=== PATIENT | female | born 1935 | race Caucasian/White ===

== ENCOUNTER 2017-01-26 16:21 | Observation (INO) | payer MEDICARE, BC ==
--- NOTE | 2017-01-26 16:37 | EDM.PDOC ---
ED HPI GENERAL MEDICAL PROBLEM - General Stated Complaint: FALL Time Seen by Provider: 01/26/17 16:21 Source of Information: Reports: Patient, Family History Limitations: Reports: No Limitations - History of Present Illness INITIAL COMMENTS - FREE TEXT/NARRATIVE: 81 years old w f filling up the gas tank of her car at gas station, twisted her r leg and fell onto her r knee. Pt has severe pain at her r posterior knee with any kind of movement. No pain at rest. 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 No other acute medical issues. Pt denies any past medical history. Onset: Today Onset Date: 01/26/17 Onset Time: 15:00 Duration: Hour(s): Location: Reports: Lower Extremity, Right Quality: Reports: Ache, Dull, Pressure, Stabbing, Throbbing Severity: Moderate Improves with: Reports: Rest Worsens with: Reports: Movement Associated Symptoms: Reports: No Other Symptoms Right Knee Pain Score (Numeric/FACES): 3 - Related Data Allergies Allergy/AdvReac Type Severity Reaction Status Date / Time No Known Allergies Allergy Verified 01/26/17 16:24 Home Meds: Home Meds Latanoprost [Xalatan 0.005% Ophth Soln] 2.5 ml EYEBOTH BEDTIME 01/26/17 [History ] Simvastatin [Zocor] 10 mg PO BEDTIME 01/26/17 [History] Review of Systems - Review of Systems Review Of Systems: See Below Constitutional: Reports: No Symptoms Eyes: Reports: No Symptoms Ears: Reports: No Symptoms Nose: Reports: No Symptoms Mouth/Throat: Reports: No Symptoms Respiratory: Reports: No Symptoms Cardiovascular: Reports: No Symptoms GI/Abdominal: Reports: No Symptoms Genitourinary: Reports: No Symptoms Musculoskeletal: Reports: Leg Pain (right leg) Skin: Reports: No Symptoms Neurological: Reports: No Symptoms Psychiatric: Reports: No Symptoms ED EXAM, GENERAL - Physical Exam Exam: See Below Exam Limited By: No Limitations General Appearance: Alert, WD/WN, Mild Distress Eye Exam: Bilateral Eye: Normal Inspection Ears: Normal External Exam Ear Exam: Bilateral Ear: Auricle Normal Nose: Normal Inspection, Normal Mucosa Throat/Mouth: Normal Inspection, Normal Lips Head: Atraumatic, Normocephalic Neck: Normal Inspection, Supple Respiratory/Chest: No Respiratory Distress, Lungs Clear, Normal Breath Sounds Cardiovascular: Normal Peripheral Pulses, Regular Rate, Rhythm, No Edema Peripheral Pulses: 2+: Femoral (L), Femoral (R) GI/Abdominal: Normal Bowel Sounds, Soft, Non-Tender (Female) Exam: Deferred Rectal (Female) Exam: Deferred Back Exam: Normal Inspection, Full Range of Motion Extremities: Limited Range of Motion, Increased Warmth Course - Vital Signs Text/Narrative:: 81 years old w f filling up the gas tank of her car at gas station, twisted her r leg and fell onto her r knee. Pt has severe pain at her r posterior knee with any kind of movement. No pain at rest. 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 No other acute medical issues. Pt denies any past medical history. PE: R knee pain after a fall Imaging: Nondisplaced vertical fracture through the anterior cortex of the intercondylar fossa of the distal fremur. 6.01PM Consultation: Dr. Chavez: Admit for pain control, no surgery scheduled. Impression:Nondisplaced vertical fracture through the anterior cortex of the intercondylar fossa of the distal fremur Tx: Ptrefused pain meds. R knee immobilizer, ICE Plan: Admit to [facility]. Last Recorded V/S: Last Vital Signs Temp 36.6 C 01/27/17 04:00 Pulse 66 01/27/17 04:00 Resp 16 01/27/17 04:00 BP 129/68 01/27/17 04:00 Pulse Ox 97 01/27/17 04:00 - Orders/Labs/Meds Orders: Active Orders 24 hr Category Date Time Status Patient Status [ADT] Routine ADT 01/26/17 18:11 Active Bedrest Bedside Commode [RC] ASDIRECTED Care 01/26/17 18:10 Active Cooling Warming Measures [RC] .PRN Care 01/26/17 16:25 Active Oxygen Therapy [RC] PRN Care 01/26/17 18:11 Active Vital Signs [RC] 04,08,12,16,20,00 Care 01/26/17 18:11 Active Knee 3V Rt [CR] Stat Exams 01/26/17 16:24 Taken Lower Extremity wo Cont Rt [CT] Stat Exams 01/26/17 16:57 Taken Ondansetron [Zofran] Med 01/26/17 18:10 Active 4 mg IV Q4H PRN Sodium Chloride 0.9% [Saline Flush] Med 01/26/17 18:10 Active 10 ml FLUSH ASDIRECTED PRN Ice Bag [Ice Therapy] [OM.PC] Routine Oth 01/26/17 16:25 Ordered Peripheral IV Insertion Adult [OM.PC] Routine Oth 01/26/17 18:10 Ordered Resuscitation Status Routine Resus Stat 01/26/17 18:10 Ordered Medication Orders Hydrocodone Bitart/Acetaminophen ([place] 325-5 Mg) 1 tab PO Q4H PRN PRN Reason: severe pain Last Admin: 01/27/17 01:22 Dose: 1 tab Admin: 01/26/17 19:32 Dose: 1 tab Morphine Sulfate (Morphine) 2 mg IVPUSH Q2H PRN PRN Reason: severe pain Ondansetron HCl (Zofran) 4 mg IV Q4H PRN PRN Reason: Nausea/Vomiting Sodium Chloride (Saline Flush) 10 ml FLUSH ASDIRECTED PRN PRN Reason: Keep Vein Open Meds: Medications Generic Name Dose Route Start Last Admin Trade Name Freq PRN Reason Stop Dose Admin Hydrocodone Bitart/Acetaminophen 1 tab 01/26/17 18:39 01/27/17 01:22 [place] 325-5 Mg PO 1 tab Q4H PRN Administration severe pain Morphine Sulfate 2 mg 01/26/17 18:23 Morphine IVPUSH Q2H PRN severe pain Ondansetron HCl 4 mg 01/26/17 18:10 Zofran IV Q4H PRN Nausea/Vomiting Sodium Chloride 10 ml 01/26/17 18:10 Saline Flush FLUSH ASDIRECTED PRN Keep Vein Open Departure - Departure Time of Disposition: 21:00 Disposition: Admitted As Inpatient 66 Condition: Fair Clinical Impression: Intercondylar fracture of femur - Discharge Information - My Orders Last 24 Hours: My Active Orders 01/26/17 16:24 Knee 3V Rt [CR] Stat 01/26/17 16:25 Cooling Warming Measures [RC] .PRN Ice Bag [Ice Therapy] [OM.PC] Routine 01/26/17 16:57 Lower Extremity wo Cont Rt [CT] Stat 01/26/17 18:10 Bedrest Bedside Commode [RC] ASDIRECTED Ondansetron [Zofran] 4 mg IV Q4H PRN Sodium Chloride 0.9% [Saline Flush] 10 ml FLUSH ASDIRECTED PRN Peripheral IV Insertion Adult [OM.PC] Routine Resuscitation Status Routine 01/26/17 18:11 Patient Status [ADT] Routine Oxygen Therapy [RC] PRN Vital Signs [RC] 04,08,12,16,20,00 - Assessment/Plan Last 24 Hours: My Active Orders 01/26/17 16:24 Knee 3V Rt [CR] Stat 01/26/17 16:25 Cooling Warming Measures [RC] .PRN Ice Bag [Ice Therapy] [OM.PC] Routine 01/26/17 16:57 Lower Extremity wo Cont Rt [CT] Stat 01/26/17 18:10 Bedrest Bedside Commode [RC] ASDIRECTED Ondansetron [Zofran] 4 mg IV Q4H PRN Sodium Chloride 0.9% [Saline Flush] 10 ml FLUSH ASDIRECTED PRN Peripheral IV Insertion Adult [OM.PC] Routine Resuscitation Status Routine 01/26/17 18:11 Patient Status [ADT] Routine Oxygen Therapy [RC] PRN Vital Signs [RC] 04,08,12,16,20,00
[2017-01-26] MEDS ORDERED: Sodium Chloride 0.9% 10 ML Syringe FLUSH PRN (18:10)
[2017-01-26] MEDS ORDERED: Ondansetron 4 MG/2 ML SDV IV PRN (18:10)
[2017-01-26] MEDS ORDERED: Morphine 2 MG/ML Syringe IVPUSH PRN (18:23)
[2017-01-26] MEDS: Acetaminophen/HYDROcodone 325-5 MG Tab PO PRN (19:32)
[2017-01-27] MEDS: Acetaminophen/HYDROcodone 325-5 MG Tab PO PRN ×5 (01:22→21:58)
--- NOTE | 2017-01-27 10:51 | CR ---
INDICATION: Tripped over gas hose this a.m., fell on right knee. RIGHT KNEE: Three views of the right knee were obtained 01/26/2017 and revealed mild to moderate hypertrophic degenerative changes at the intercondylar notch and laterally off the femur and tibia. Genu vara deformity is noted. There is narrowing of the lateral femorotibial joint space to a moderate degree. An upright view of both knees may be helpful in that regard. Hypertrophic changes of mild to moderate degree are noted at the patellofemoral joint with lateral subluxation of the patella to a moderate degree. Patellofemoral joint space appears to be fairly well maintained, allowing for the subluxation laterally. A density is noted impressing on the anterior fat pad at the suprapatellar bursa , which could represent a hematoma, but should be correlated clinically. There is a curvilinear lucency extending over the distal shaft - metaphysis of the femur. It becomes vertical - longitudinal - extending through the intercondylar spine area. Findings are compatible with a hairline fracture in this area. No other acute bone or joint abnormality was suggested. IMPRESSION: 1. Hairline fracture of the distal shaft of the femur extending through the intercondylar notch - anatomic position and alignment is noted. 2. Possible hematoma at the suprapatellar bursa. MTDD
--- NOTE | 2017-01-27 14:10 | HP ---
ADMISSION DATE: 01/26/2017 REASON FOR VISIT: Recent fall, knee injury, femur fracture. HISTORY OF PRESENT ILLNESS: Damaris Loving is an 81-year-old, female, resident of [place], [place], who was admitted through [place] to [facility]. About 10 a.m. on 01/26, she was filling up the gas tank in the vehicle as they were heading to the [place] for a family birthday democrat. Was filling the tank, was decided to wash the windshield, attempted to step over the gas hose, and fell injuring her right knee. She was able to get up, get into the car, and drive to the [place]. Pain increased, ambulation was limited, and she finally came back to [facility]. X-rays revealed a vertical fracture of the distal femur, was admitted for hospital care and intervention. Dr. Joo Chavez of orthopedics has been consulted. MEDICATIONS: Present daily medications include simvastatin 10 mg 1 p.o. daily. Medicated eyedrops and multivitamin. PAST MEDICAL HISTORY: Significant for T and A as a child, appendectomy in her teens, and bilateral history of salpingo-oophorectomy for suspected cervical disease age 41. No other operative procedures, hospitalizations, unusual childhood diseases, major injuries, or fractures. ALLERGIES: No added medication, environmental, or latex allergies. 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 [employer]am[employer] by occupation. in good health. Seven children and nine grandchildren. Nonsmoker. No alcohol consumption. No illicit drug use. FAMILY HISTORY: Dad in his 60s of unknown cause. Mom 87 of old age. One brother and one sister in good health. FAMILY HISTORY: Negative for diabetes mellitus, early heart disease, or inheritable cancers. REVIEW OF SYSTEMS: CHIEF COMPLAINT: Right leg pain. EYES: Sees well, hears well. Oropharynx, good dentition, no loose teeth. CHEST: No cough, wheeze, or congestion. CARDIOVASCULAR: Denies chest pain, palpitations, or syncope. GI: Regular predictable stools. : Good voiding pattern. SKIN: No open sores or lesions. ENDOCRINE: No excessive thirst, urination. ALLERGIES: No chronic cough, wheeze, or congestion. PSYCHIATRIC: Mood stable. PHYSICAL EXAMINATION: VITAL SIGNS: Stable. 36.6, 129/68, 88 is the mean blood pressure. Respirations 16. 97% room to room air. GENERAL: Appears comfortable. Reclining in bed. Funduscopic benign. Conjunctivae clear. Bright tympanic membranes. Clear nasal discharge. Mouth and oropharynx are clear. Tongue midline. Good gag reflex. NECK: Benign. Thyroid small. CHEST: Clear in all lung vaughn. HEART: Regular rate murmur. ABDOMEN: Benign. No hepatosplenomegaly, breasts exam deferred. ABDOMEN: Benign. No hepatosplenomegaly, right lower quadrant appendectomy, lower abdominal hysterectomy scar. Pelvic and rectal exam deferred. EXTREMITIES: Well perfused. Good peripheral pulses. Bunion on the right, toes downgoing. Plantar flexion, knee mobilizer in place. LABORATORY DATA: None indicated. ASSESSMENT: 1. Right distal femur fracture, undisplaced, ortho consult in place. 2. Status post tonsillectomy, status post appendectomy, status post hysterectomy, bilateral salpingo-oophorectomy. PLAN: Pain control. Mobilized in place. Ortho consult upcoming and planned. /[id number] /ALBERTA
[2017-01-28] MEDS: Acetaminophen/HYDROcodone 325-5 MG Tab PO PRN ×3 (02:26→11:39)
--- NOTE | 2017-01-28 08:36 | CONS ---
DATE OF CONSULTATION: 01/27/2017 PROBLEM: Right knee pain. HISTORY OF PRESENT ILLNESS: This pleasant patient presented to the emergency room last night, after tripping over a gas hose. She fell directly onto her knee. She noted pain and was unable to weight bear. In the emergency room, x- rays and CT scans were performed that showed a nondisplaced intercondylar fracture of the distal right femur in good position and alignment. She was hospitalized for pain and orthopedic consultation. In visiting with the patient today, she denies any pain in any other location. She states she is healthy except for high cholesterol. She states that the pain is primarily around the knee area and inhibits her from weightbearing. She denies any paresthesias. OBJECTIVE: Today, she has no pain on palpation around the hip or motion of the hip. She moves her toes well. Neurovascular integrity is intact. IMAGING: X-rays are reviewed and above diagnosis confirmed. ASSESSMENT AND PLAN: We discussed with the patient, her daughter, and her , conservative versus operative repair. The patient elects to proceed with conservative care. This nondisplaced fracture should do well as long as she is nonweightbearing. She will be nonweightbearing for approximately six weeks. The long-leg cast will be applied this afternoon. Physical therapy and occupational therapy will work with her and she will be discharged tomorrow. In visiting with the patient, she understands the risks, complications, prognosis, and expectations of conservative as well as operative repair. /[id number] CHICHO/ALBERTA
--- NOTE | 2017-01-28 09:26 | PN ---
DATE SEEN: 01/28/2017 SUBJECTIVE: Damaris Loving is a delightful 81-year-old female, recently hospitalized for a distal femur fracture secondary to fall. She has been seen by Dr. Chavez, Orthopedics, long-leg cast has been placed. Seen this morning. Little pain. Ambulatory skills have been in place. Physical therapy has been ordered, but the patient has not been seen by Physical Therapy at this time. The pain is otherwise well controlled. OBJECTIVE: VITAL SIGNS: 145/71, mean blood pressure 95, respirations 18, 96% room air, and 36.4. EXTREMITIES: Cast appears to be well positioned. Toes were warm to touch. Peripheral pulses dorsalis pedis, palpably normal. Distal femur fracture, nonsurgical cast in place. PLAN: PT involved. Discharged accordingly when everyone is in agreement. /[id number] JOSSUE/ALBERTA
[2017-01-28 11:24] VITALS: BP 143/76
--- NOTE | 2017-01-28 13:37 | PN ---
DATE SEEN: 01/28/2017 PROBLEM: Nondisplaced intercondylar fracture and supracondylar fracture, right distal femur. SUBJECTIVE: The patient states she is asymptomatic unless she moves too violently with the cast. She states the cast is very comfortable and has no pain when she is sitting still. She denies any chest pain, shortness of breath, or difficulty breathing. OBJECTIVE: Vital signs are stable. Neurovascular integrity is intact. ASSESSMENT AND PLAN: The patient has visited with Physical therapy and Occupational therapy and met her goals as far as nonweightbearing and the ability to handle herself at home with restrictions that have been outlined for her. She will therefore be discharged today and return to see me in approximately 2 weeks for care. Any questions or problems before, she will let me know or return. My cellphone number has been given to her and she is encouraged to call if there is any problems with the cast, pain, or any difficulty she has, and also to call the clinic or emergency room. /[id number] CHICHO/ALBERTA
--- NOTE | 2017-01-29 00:35 | DISCH ---
DISCHARGE DATE: 01/28/2017 PROBLEM: Nondisplaced intertrochanteric and supracondylar fracture, right knee. HISTORY AND HOSPITAL COURSE: This patient was admitted through the emergency room for the above diagnosis. She was admitted, treated for pain and a long leg cast was applied the following day for comfort and treatment of this nondisplaced fracture. She has undergone physical therapy and occupational therapy and is ready for discharge at this time, having achieved all therapy goals. CONSULTATIONS: None. DIET: Regular. MEDICATIONS: 1. Continue previous home medication at usual dosage and frequency. 2. Hydrocodone. Dispensed #50, one every 3 to 4 hours p.o. p.r.n. Return appointment in approximately 2 weeks. 3. One adult aspirin 325 p.o. daily x6 weeks. ACTIVITY: No weightbearing. With assistance for right leg transfer during this next six weeks. INSTRUCTIONS: Cast care is explained to the patient as well as neurovascular precautions. Patient is giving my cell phone number to call me at any time with any questions or problems if she may have or return to the emergency room or clinic. COMPLICATIONS: None. /[id number] CHICHO/ALBERTA
== END 2017-01-28 11:51 | disposition home or self-care (01) ==
LOC: FB.ED 16:21 → FB.MS 18:11
PROVIDERS: ADMIT Orthopaedic Surgery; ATTEND Orthopaedic Surgery
DX: S72.144A Nondisplaced intertrochanteric fracture of right femur, initial encounter for closed fracture (principal); S42.414A Nondisplaced simple supracondylar fracture without intercondylar fracture of right humerus, initial encounter for closed fracture; Z79.82 Long term (current) use of aspirin; Z79.899 Other long term (current) drug therapy; Z90.49 Acquired absence of other specified parts of digestive tract; Z90.710 Acquired absence of both cervix and uterus; W18.09XA Striking against other object with subsequent fall, initial encounter; Y93.89 Activity, other specified
CPT/HCPCS: 73562; 73700; 97110; 97161; 97165; 97530; 99284; 99285; A9270; G0378; 99219

== ENCOUNTER 2020-02-18 15:12 | Emergency (ER) | payer MEDICARE, BC ==
--- NOTE | 2020-02-18 16:19 | EDM.PDOC ---
ED HPI GENERAL MEDICAL PROBLEM - General Stated Complaint: POSSIBLE TIA Time Seen by Provider: 02/18/20 15:20 Source of Information: Reports: Patient History Limitations: Reports: No Limitations - History of Present Illness INITIAL COMMENTS - FREE TEXT/NARRATIVE: Patient presented to the ED from the clinic because of slurred speech, word finding difficulty and facial droop. The symptoms started at about 7 am when patient woke up. She denies any double or blurry vision, headache, weakness, lost of balance. There is no fever,chills, or cough/cold symptoms. - Related Data Allergies Allergy/AdvReac Type Severity Reaction Status Date / Time No Known Allergies Allergy Verified 01/26/17 16:24 Home Meds: Home Meds Latanoprost [Xalatan 0.005% Ophth Soln] 2.5 ml EYEBOTH BEDTIME 01/26/17 [History] Lutein/Minerals/Vit A,C & E [Ocuvite] 1 tab PO DAILY 01/27/17 [History] Multivitamin [One Daily] 1 tab PO DAILY 01/27/17 [History] Simvastatin [Zocor] 40 mg PO BEDTIME 01/27/17 [History] Past Medical History HEENT History: Reports: Cataract Cardiovascular History: Reports: None Respiratory History: Reports: Intubation, Previous Gastrointestinal History: Reports: None Genitourinary History: Reports: None OPERATIONS SUPPORT SPECIALIST History: Reports: Musculoskeletal History: Reports: Fracture, Other (See Below) Other Musculoskeletal History: fx right femur above knee Neurological History: Reports: None Psychiatric History: Reports: None Endocrine/Metabolic History: Reports: None Hematologic History: Reports: None Oncologic (Cancer) History: Reports: Cervix Dermatologic History: Reports: None - Infectious Disease History Infectious Disease History: Reports: Chicken Pox, Mumps - Past Surgical History Head Surgeries/Procedures: Reports: None HEENT Surgical History: Reports: Adenoidectomy, Cataract Surgery, Oral Surgery, Tonsillectomy, Other (See Below) Other HEENT Surgeries/Procedures: pierce cataract surgery, teeth pulled Cardiovascular Surgical History: Reports: None Respiratory Surgical History: Reports: None GI Surgical History: Reports: Appendectomy, Colonoscopy Female Surgical History: Reports: Hysterectomy Endocrine Surgical History: Reports: None Neurological Surgical History: Reports: None Musculoskeletal Surgical History: Reports: None Oncologic Surgical History: Reports: None Dermatological Surgical History: Reports: None Social & Family History - Family History HEENT: Reports: None Cardiac: Reports: None Respiratory: Reports: None GI: Reports: None : Reports: None OBGYN: Reports: Musculoskeletal: Reports: Arthritis Neurological: Reports: Dementia Psychiatric: Reports: None Endocrine/Metabolic: Reports: None Hematologic: Reports: None Immunologic: Reports: None Dermatologic: Reports: None Oncologic: Reports: None - Caffeine Use Caffeine Use: Reports: Coffee Other Caffeine Use: 3 cups coffee per day ED ROS GENERAL - Review of Systems Review Of Systems: See Below Constitutional: Reports: No Symptoms HEENT: Reports: No Symptoms Respiratory: Reports: No Symptoms Cardiovascular: Reports: No Symptoms Endocrine: Reports: No Symptoms GI/Abdominal: Reports: No Symptoms : Reports: No Symptoms Musculoskeletal: Reports: No Symptoms Skin: Reports: No Symptoms Neurological: Reports: Change in Speech, Other (Aphasia). Denies: Difficulty Walking, Gait Disturbance ED EXAM, NEURO - Physical Exam Exam: See Below Exam Limited By: No Limitations General Appearance: Alert, No Apparent Distress Eye Exam: Bilateral Eye: PERRL Ears: Normal External Exam, Normal Canal, Hearing Grossly Normal Nose: Normal Inspection, Normal Mucosa, No Blood Throat/Mouth: Normal Inspection, Normal Lips, Normal Teeth, Normal Gums Head Exam: Atraumatic, Normocephalic Neck: Normal Inspection Respiratory/Chest: No Respiratory Distress, Lungs Clear, Normal Breath Sounds Cardiovascular: Normal Peripheral Pulses, Regular Rate, Rhythm, No Edema GI/Abdominal: Normal Bowel Sounds, Soft, Non-Tender, No Organomegaly Neurological: Alert (left facial droop, aphasia), Oriented x 3 Extremities: Normal Inspection, Normal Range of Motion, Non-Tender Psychiatric: Normal Affect Skin Exam: Warm Course - Vital Signs Text/Narrative:: labs/ekg/head ct was discussed with patient head CT-see result ASA 324 mg po x1 Full Code Case discussed with Dev-stroke neurologist at [facility] - Orders/Labs/Meds Orders: Active Orders 24 hr Category Date Time Status EKG Documentation Completion [RC] ASDIRECTED Care 02/18/20 15:53 Active Chest 1V Frontal [CR] Stat Exams 02/18/20 15:52 Ordered Head wo Cont [CT] Stat Exams 02/18/20 15:14 Taken CBC WITH AUTO DIFF [HEME] Stat Lab 02/18/20 15:52 Ordered COMPREHENSIVE METABOLIC PN,CMP [CHEM] Stat Lab 02/18/20 15:52 Ordered INR,PT,PROTHROMBIN TIME [COAG] Stat Lab 02/18/20 15:52 Ordered PTT,PARTIAL THROMBOPLSTIN TIME [COAG] Stat Lab 02/18/20 15:52 Ordered TROPONIN I [CHEM] Stat Lab 02/18/20 15:52 Ordered EKG 12 Lead [EK] Routine Ther 02/18/20 15:52 Ordered Departure - Departure Time of Disposition: 16:40 Disposition: DC/Tfer to Acute Hospital 02 Condition: Good Clinical Impression: CVA (cerebral vascular accident) - Discharge Information Referrals: Polian Bruce NP [Primary Care Provider] - - My Orders Last 24 Hours: My Active Orders 02/18/20 15:14 Head wo Cont [CT] Stat 02/18/20 15:52 Chest 1V Frontal [CR] Stat CBC WITH AUTO DIFF [HEME] Stat COMPREHENSIVE METABOLIC PN,CMP [CHEM] Stat INR,PT,PROTHROMBIN TIME [COAG] Stat PTT,PARTIAL THROMBOPLSTIN TIME [COAG] Stat TROPONIN I [CHEM] Stat EKG 12 Lead [EK] Routine 02/18/20 15:53 EKG Documentation Completion [RC] ASDIRECTED - Assessment/Plan Last 24 Hours: My Active Orders 02/18/20 15:14 Head wo Cont [CT] Stat 02/18/20 15:52 Chest 1V Frontal [CR] Stat CBC WITH AUTO DIFF [HEME] Stat COMPREHENSIVE METABOLIC PN,CMP [CHEM] Stat INR,PT,PROTHROMBIN TIME [COAG] Stat PTT,PARTIAL THROMBOPLSTIN TIME [COAG] Stat TROPONIN I [CHEM] Stat EKG 12 Lead [EK] Routine 02/18/20 15:53 EKG Documentation Completion [RC] ASDIRECTED
[2020-02-18] MEDS ORDERED: Aspirin 81 MG Tab.Chew PO ONE (16:26)
[2020-02-18 16:48] VITALS: PULSE 103
[2020-02-18 17:43] VITALS: BP 157/96
--- NOTE | 2020-02-18 18:53 | CT ---
INDICATION: Stroke protocol - CVA - left-sided weakness, garbled speech, confusion. CT HEAD WITHOUT CONTRAST: Spiral 3.75 mm axial sections were obtained through the brain without contrast 02/18/20, with axial, sagittal and coronal reconstructions - no comparisons. Total exam DLP was 1399.62 mGy-cm. Calcifications are noted at the left vertebral artery and the internal carotid arteries. Focal decreased density is noted, rounded in shape and small in size at the cerebellar cortex on the left, may represent a tiny infarct. Low-density abnormality is noted in the periventricular white matter in the right parietal area, which extends into the basal ganglia on the right. Other less well-defined areas of decreased density in the white matter are noted, compatible with microvascular disease. No old studies are available to determine whether these are chronic and/or acute. There is however no evidence of a bleeding site or hematoma. An area of more prominent decreased density in the left anterior parietal lobe white matter is noted. No shift of midline structures was identified. Ventricles are slightly prominent, compatible with mild degree of central atrophy. Cortical sulci are compatible with patient age and mild degree of cortical atrophy. The paranasal sinuses appear to be well aerated. There are some abnormally aerated mastoid air cells on the right, raising question of right mastoiditis. The left mastoid air cells were well aerated. No cranial abnormality was identified. The orbits appear to be intact. IMPRESSION: 1. Cerebrovascular disease with probable microvascular disease-type changes, as well as more focal abnormal areas of density in the white matter, raising question of evolving disease in addition to old disease in those areas, primarily the parietal lobes and especially on the right extending into the basal ganglia on the right from the periventricular white matter of the parietal lobe and minimally in the left anterior parietal white matter. No bleeding site or hematoma was noted. 2. Possible right-sided mastoiditis. 3. 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 Report was called to Dr. Richardson at 1533 hours. [facility]
--- NOTE | 2020-02-18 19:29 | CR ---
INDICATION: CVA. CHEST, ONE VIEW: Portable AP upright view of the chest 02/18/20 - no comparison. The heart appears somewhat enlarged, emphasized by the AP positioning. Overlying EKG leads are noted. The aorta is tortuous with calcification in the arch. An active infiltrate or effusion was not identified. IMPRESSION: No acute process. MTDD
== END 2020-02-18 19:15 ==
LOC: FB.ED 15:12
DX: I62.9 Nontraumatic intracranial hemorrhage, unspecified (principal); Z90.710 Acquired absence of both cervix and uterus; Z90.49 Acquired absence of other specified parts of digestive tract; Z79.899 Other long term (current) drug therapy
CPT/HCPCS: 36415; 70450; 71045; 80053; 84484; 85025; 85610; 85730; 93005; 99285; A9270